=== PATIENT | female | born 1975 | race Two or more races ===

== ENCOUNTER 2023-08-18 14:33 | Emergency (ER) | payer OTHER ==
[2023-08-18 16:15] LABS: HEPATITIS C AB NON-REACTIVE (Non-React); HIV RAPID SCREEN RLFX COMFIRM NON-REACTIVE (Non-React)
[2023-08-18 16:37] LABS: AMPHETAMINES SCREEN, URINE NEGATIVE (CUTOFF=500); BARBITURATE SCREEN,URINE NEGATIVE (CUTOFF=200); BENZODIAZEPINES SCREEN,URINE NEGATIVE (CUTOFF=150); BUPRENORPHINE SCREEN,URINE NEGATIVE (CUTOFF=10); METHADONE SCREEN, URINE NEGATIVE (CUTOFF=200); METHAMPHETAMINES SCREEN, URINE NEGATIVE (CUTOFF=500); OXYCODONE SCREEN,URINE NEGATIVE (CUT0FF=100); THC SCREEN,URINE 20 NG/ML NEGATIVE (CUTOFF=50)
[2023-08-20 12:42] LABS: HEP B SURFACE AG Negative (Negative)
[2023-08-21 13:47] LABS: HSV SUBTYPE SOURCE Plasma; HSV1 SUBTYPE BY PCR Not Detected; HSV2 SUBTYPE BY PCR Not Detected
== END 2023-08-18 17:12 | disposition home or self-care (01) ==
LOC: JD.ED 14:33
DX: Z11.4 Encounter for screening for human immunodeficiency virus [HIV] (principal); Z76.89 Persons encountering health services in other specified circumstances; Z79.899 Other long term (current) drug therapy
CPT/HCPCS: 36415; 80306; 86803; 87340; 87529; 99284; G0433